=== PATIENT | female | born 1960 | race Caucasian/White ===

== ENCOUNTER → 2022-12-09 13:08 | Outpatient (BNVA) | payer MEDICARE, MEDICAID, SELFPAY | PROVIDERS: PCP Family Medicine; Visit Provider Psychiatry & Neurology Neurology | DX: F25.0 Schizoaffective disorder, bipolar type (principal) | CPT/HCPCS: 80061; 83036 ==

== ENCOUNTER → 2024-03-15 10:27 | Outpatient (BNVA) | payer MEDICARE, MEDICAID, SELFPAY ==
[2022-12-11 14:16] VITALS: BP 118/82; BMI 18.7
== END ==
PROVIDERS: PCP Family Medicine; Visit Provider Internal Medicine Cardiovascular Disease
DX: R07.9 Chest pain, unspecified (principal); R06.9 Unspecified abnormalities of breathing; F12.90 Cannabis use, unspecified, uncomplicated; F15.10 Other stimulant abuse, uncomplicated; J41.0 Simple chronic bronchitis; G40.909 Epilepsy, unspecified, not intractable, without status epilepticus; F17.200 Nicotine dependence, unspecified, uncomplicated; R94.31 Abnormal electrocardiogram [ECG] [EKG]
CPT/HCPCS: 99204; 93005

== ENCOUNTER 2024-05-03 11:46 | Outpatient (CLI) | payer MEDICARE, MEDICAID, SELFPAY ==
[2022-12-11 14:16] VITALS: BP 118/82; BMI 18.7
[2024-05-03 12:52] VITALS: BMI 18.9
--- NOTE | 2024-05-03 12:55 | ECG_ITS ---
[facility] Test Date: 2024-05-03 Pat Name: Dyan Dave Department: Room: Gender: Female Business Development Manager: : 1960 Requested By: Chandra Orozco Order Number: [id number] Reading MD: Interpretive Statements Lung unchanged pre/post procedure; Intraprocedure shortess of breath; Symptoms resoled by discharge [email or web address]
[2024-05-03 13:32] VITALS: BP 111/74; PULSE 83
== END 2024-05-03 11:47 | disposition home or self-care (01) ==
PROVIDERS: PCP Family Medicine; Visit Provider Internal Medicine Cardiovascular Disease
DX: R07.9 Chest pain, unspecified (principal); R06.02 Shortness of breath
CPT/HCPCS: 93017

== ENCOUNTER 2024-05-23 10:52 | Outpatient (CLI) | payer MEDICARE, MEDICAID, SELFPAY ==
[2022-12-11 14:16] VITALS: BP 118/82; BMI 18.7
--- NOTE | 2024-05-23 10:56 | USCV_ITS ---
Dyan Dave Age: 64 Gender: F : 1960 Exam Date: 05/23/2024 11:10 Ordering Phys: Chandra Orozco MD ([email or web address]) Technologist: CT [place] [facility] [place]ication: raza BP: 102 / 81 HR: 86 Rhythm: Sinus Technical Quality: Adequate MEASUREMENTS (Male / Female) Normal Values 2D ECHO LVOT Diameter 2.0 cm LV Ejection Fraction MOD 4C 68.4 % LV Ejection Fraction MOD 2C 66.5 % LV Ejection Fraction 2C AL 65.4 % LA Diameter 2.6 cm RA Systolic Volume 4C AL 17.6 ml RA Systolic Volume 4C MOD 18.2 ml LA Sys Volume AL 20.8 cm cubed LA Sys Volume Index AL 15.0 cm cubed/m squared Aorta at Sinotubular Diameter 2.0 cm IVC Diameter 1.4 cm M-MODE LA Ao Ratio MM 1.2 AV Cusp Separation MM 1.7 cm DOPPLER AV Peak Velocity 143.0 cm/s LVOT Peak Velocity 98.0 cm/s AV Area Cont Eq vti 2.4 cm squared AV Area Cont Eq pk 2.2 cm squared MV Peak Velocity 89.0 cm/s MV Area PHT 4.0 cm squared Mitral E to A Ratio 1.1 TV Peak Velocity 262.5 cm/s TR Peak Velocity 310.0 cm/s TR Peak Gradient 38.4 mmHg TV Peak E Velocity 72.0 cm/s Right Atrial Pressure 3.0 mmHg Pulmonary Artery Systolic Pressu 41.4 mmHg PV Peak Velocity 97.5 cm/s FINDINGS Left Ventricle Normal left ventricular size and systolic function, EF 67% . No regional wall motion abnormalities. Mild left ventricular hypertrophy. Right Ventricle The right ventricle is normal in size and function. Right Atrium The right atrium is normal in size. Left Atrium The left atrium is normal in size. Mitral Valve Trace to mild mitral valve regurgitation. Aortic Valve No gross abnormalities noted Tricuspid Valve Trace tricuspid valve regurgitation. Estimated pulmonary artery peak systolic pressure 41 mmHg Pulmonic Valve No gross abnormalities noted Pericardium No pericardial effusion. Aorta Normal ascending aorta dimension. IVC Normal inferior vena cava. CONCLUSIONS Normal left ventricular size and systolic function, EF 67% . No regional wall motion abnormalities. Mild left ventricular hypertrophy. Trace to mild mitral valve regurgitation. Trace tricuspid valve regurgitation. Estimated pulmonary artery peak systolic pressure 41 mmHg. There is no pericardial effusion. There are no intracardiac masses. No similar previous studies are available for comparison Dr Chandra Orozco MD FAC (Electronically Signed) Final Date: 28 May 2024 17:34 S
== END 2024-05-23 10:53 | disposition home or self-care (01) ==
LOC: RAD 10:53
PROVIDERS: PCP Family Medicine; Visit Provider Internal Medicine Cardiovascular Disease
DX: R06.09 Other forms of dyspnea (principal)
CPT/HCPCS: 93306; 99204